=== PATIENT | female | born 1945 | race Two or more races ===

== ENCOUNTER → 2017-01-30 | Outpatient (CLI) | payer MEDICARE, BC ==
[2016-06-17 11:00] VITALS: BP 124/57
[~2017-01-30] MED LIST: ASPI-39 PO; DULO30CA2 PO; ERGO500012 PO; Hydrocodone/Acetaminophen PO; IBUP-1060 PO; IOHEXOL 300 MG/ML 100ML VIAL. IV ONE; METH500T7 PO; METO25TA4 PO; Metoprolol Tartrate PO; OMEP20CA9 PO; POLY255P PO; PRED20TA PO; Tizanidine Hcl PO
--- NOTE | 2017-01-30 11:45 | KCIC ---
INDICATION: COMPARISON: None. TECHNIQUE: Spectral doppler and grayscale ultrasound images obtained of the carotid vasculature. FINDINGS: There is [mild intimal thickening and minimal] atheromatous plaquing [within both carotid bulbs and proximal internal carotid arteries]. Doppler interrogation reveals normal waveforms and the peak systolic velocities are as follows: Right: ICA: 71.0 CCA: 113.0 ICA/CCA Ratio: 0.67 Left: ICA: 73.0 CCA: 103.0 ICA/CCA Ratio: 0.71 Vertebral arteries antegrade. subclavain waveforms seen. Note is made of mildly enlarged right neck lymph nodes, the largest lymph node measures up to 1.7 centimeter in maximum dimension. IMPRESSION: No hemodynamically significant stenoses of the internal carotid arteries bilaterally. These values were derived from data published in the J Vasc Surg 1995; 21:98, and use velocity parameters that angiographically correlate the residual internal carotid artery lumen with the distal internal carotid artery lumen (NASCET method). < 40% 40-59% 60-79% > 80% PSV ICA < 130 130-260 260-400 > 400 EDV ICA < 50 50-70 70-140 > 140 ICA/CCA < 2.0 2.0-3. 5 3.6-5.0 > 5.0 Electronically signed by: Piedad Bustamante MD (Jan 30, 2017 11:43:40)
--- NOTE | 2017-01-30 12:41 | KCIC ---
CT head with without contrast Indication: Vision loss in the right eye and elevated blood pressure. Pre and post intravenous contrast axial imaging of the brain was performed. PQRS STATEMENT One or more of the following individualized dose reduction techniques were utilized for this study: 1.Automated exposure control. 2.Adjustment of the mA and/orkVaccording to patient size. 3.Use of iterative reconstruction technique. No other who studies are available for comparison. The ventricles and sulci are within normal limits. No sulcal effacement, midline shift or hemorrhage is detected. The cisterns are patent. No abnormal enhancement following contrast administration is identified. The orbits are unremarkable. The visualized paranasal sinuses are clear. Impression: Unremarkable pre and post-contrast CT of the brain. Electronically signed by: Medardo Delgado MD (Jan 30, 2017 12:40:00)
== END | disposition home or self-care (01) ==
LOC: KCIC US 10:44
PROVIDERS: ATTEND Family Medicine
DX: I65.23 Occlusion and stenosis of bilateral carotid arteries (principal); H53.8 Other visual disturbances; I10 Essential (primary) hypertension
CPT/HCPCS: 70470; 82565; 93880; Q9967

== ENCOUNTER → 2017-05-06 | Outpatient (CLI) | payer MEDICARE ==
[2016-06-17 11:00] VITALS: BP 124/57
[~2017-05-06] MED LIST changes: -ERGO500012 PO; +ERGO500027 PO; +GADOBUTROL 10 MMOL/10 ML VIAL IV ONE; -IOHEXOL 300 MG/ML 100ML VIAL. IV ONE
--- NOTE | 2017-05-06 15:31 | KCIC ---
EXAM: MRI LUMBAR SPINE WITH AND WITHOUT CONTRAST. HISTORY: Low back pain, right lower extremity radiculopathy, prior lumbar surgery. TECHNIQUE: Magnetic resonance images of the lumbar spine were obtained before and after the intravenous administration of 8 mL Gadavist. COMPARISON: June 13, 2016. FINDINGS: There is a mild lumbar levoscoliosis. There is slight retrolisthesis from L2 through L4. No fractures are identified. Degenerative disc disease is moderate from L1 through L4 and mild elsewhere. The conus is at L1 and appears normal. There are no enhancing parenchymal lesions. At T11-12, there is a moderate posterior disc bulge with a moderate central protrusion. This abuts the anterior cord with mild deformity. This is unchanged. At L1-2, there is a moderate broad posterior disc bulge with a broad central and right paracentral disc protrusion superimposed on annular tear. These measure up to 7 mm anteroposteriorly. The right lateral recess is mildly narrowed with abutment of one right-sided nerve root. There is no significant neural foraminal stenosis. At L2-3, there is a moderate posterior disc-osteophyte complex. There is a small right paracentral protrusion. Both lateral recesses are mildly narrowed. Neural foraminal stenosis is mild bilaterally. Facet hypertrophy is mild on the left. Left ligamentum flavum hypertrophy abuts a few left nerve roots from posterolaterally. At L3-4, there is a moderate posterior disc bulge. Right hemilaminotomy changes are noted. Granulation tissue extends into the right neural foramen and exerts mild mass effect on the exiting right L3 nerve root. Neural foraminal stenosis is moderate to severe on the right and moderate on the left. Left lateral recess stenosis is mild to moderate. At L4-5, there is a moderate posterior disc bulge. Facet and ligamentum flavum hypertrophy is mild. Lateral recess stenosis is mild to moderate bilaterally. Neural foraminal stenosis is mild bilaterally. At L5-S1, there is a minimal posterior disc bulge. It extends into the left lateral territory where it abuts the exiting left L5 nerve root. IMPRESSION: 1. Right hemilaminotomy changes at L3-4. Granulation tissue extends into the right neural foramen where there is some mass effect on the right L3 nerve root. Right neural foraminal stenosis is moderate to severe at this level. 2. Multilevel bilateral mild to moderate lateral recess narrowing as detailed above. 3. Additional neural foraminal stenosis is generally mild as above. 4. A moderate central protrusion at T11-12 abuts the anterior cord with mild deformity. Multiple other herniations more inferiorly and mild mass effect on the anterior thecal sac. 5. Degenerative disc disease is moderate from L1 through L4 and mild elsewhere. Electronically signed by: Stanislav Ware MD (05/06/2017 3:28 PM)
== END | disposition home or self-care (01) ==
LOC: KCIC MRI 13:25
PROVIDERS: ATTEND Family Medicine
DX: M48.06 Spinal stenosis, lumbar region (principal); M51.16 Intervertebral disc disorders with radiculopathy, lumbar region; M51.24 Other intervertebral disc displacement, thoracic region
CPT/HCPCS: 72158; 82565; A9585

== ENCOUNTER → 2017-07-30 | Outpatient (CLI) | payer MEDICARE, BC ==
[2016-06-17 11:00] VITALS: BP 124/57
[~2017-07-30] MED LIST changes: -GADOBUTROL 10 MMOL/10 ML VIAL IV ONE
--- NOTE | 2017-07-30 12:40 | CARD ---
APPROVED REPORT EXAM: Two-dimensional and M-mode echocardiogram with Doppler and color Doppler. Other Information Quality : GoodHR: 74bpm Rhythm : NSR INDICATION Dyspnea Shortness of breath RISK FACTORS Hypertension Obesity 2D DIMENSIONS RVDd3.1 (2.9-3.5cm)Left Atrium(2D)3.7 (1.6-4.0cm) IVSd0.8 (0.7-1.1cm)Aortic Root(2D)2.4 (2.0-3.7cm) LVDd5.0 (3.9-5.9cm)LVOT Diameter2.2 (1.8-2.4cm) PWd0.7 (0.7-1.1cm)LVDs3.3 (2.5-4.0cm) FS (%) 34.8 %SV75.6 ml Aortic Valve AoV Peak Marco.159.0cm/sAoV VTI31.2cm AO Peak GR.10.1mmHgLVOT Peak Marco.109.5cm/s AO Mean GR.5mmHgAVA (VMAX)2.57cm2 Mitral Valve MV E Ymeartom44.7cm/sMV E Peak Gr.3mmHg MV DECEL [id number] A Epsoapks893.4cm/s MV E Mean Gr.2mmHgE/A Ratio0.9 MV A Ezezunny820us Pulmonary Valve PV Peak Bbgjzepi874.6cm/s Tricuspid Valve TR P. Eolimbsw230xp/sTR Peak Gr.24mmHg Pulmonary Vein S1 Snvlrckd58.4cm/sD2 Ukycvoux54.8cm/s PVa irnpefer16wotg LEFT VENTRICLE The left ventricle is normal size. There is normal left ventricular wall thickness. The left ventricu lar systolic function is normal and the ejection fraction is within normal range. The Ejection Fracti on is 55-60%. There is normal LV segmental wall motion. Transmitral Doppler flow pattern is Grade I-a bnormal relaxation pattern. RIGHT VENTRICLE The right ventricle is normal size. There is normal right ventricular wall thickness. The right ventr icular systolic function is normal. ATRIA The left atrium size is normal. The right atrium size is normal. The interatrial septum is intact wit h no evidence for an atrial septal defect or patent foramen ovale as noted on 2-D or Doppler imaging. AORTIC VALVE The aortic valve is mildly The aortic valve is trileaflet. Doppler and Color Flow revealed no signifi cant aortic regurgitation. There is no significant aortic valvular stenosis. MITRAL VALVE Mitral annular calcification is mild. The mitral valve leaflets are thickened. There is no evidence o f mitral valve prolapse. There is no mitral valve stenosis. Doppler and Color Flow revealed mild mitr al regurgitation. TRICUSPID VALVE Doppler and Color Flow revealed trace tricuspid regurgitation. The pulmonary artery systolic pressure is estimated at 24 mmHg. PULMONIC VALVE The pulmonic valve is not well visualized but appears to open adequately. Doppler and Color Flow reve aled no pulmonic valvular regurgitation. There is no pulmonic valvular stenosis by spectral Doppler. GREAT VESSELS The aortic root is normal in size. The ascending aorta is normal in size. The pulmonary artery is nor mal. The IVC is normal in size and collapses >50% with inspiration. PERICARDIAL EFFUSION There is no evidence of significant pericardial effusion. Critical Notification Critical Value: No <Conclusion> The left ventricle is normal size. The left ventricular systolic function is normal and the ejection fraction is within normal range. The Ejection Fraction is 55-60%. There is no significant aortic valvular stenosis. Doppler and Color Flow revealed no significant aortic regurgitation. Doppler and Color Flow revealed mild mitral regurgitation. Doppler and Color Flow revealed trace tricuspid regurgitation. The pulmonary artery systolic pressure is estimated at 24 mmHg.
== END | disposition home or self-care (01) ==
LOC: ECHO 07:39
PROVIDERS: ATTEND Internal Medicine Cardiovascular Disease
DX: I34.0 Nonrheumatic mitral (valve) insufficiency (principal); I10 Essential (primary) hypertension; R60.0 Localized edema; R06.02 Shortness of breath
CPT/HCPCS: 93306

== ENCOUNTER → 2018-10-23 | Outpatient (CLI) | payer MEDICARE, BC ==
[2016-06-17 11:00] VITALS: BP 124/57
[~2018-10-23] MED LIST changes: -POLY255P PO; +POLY255P11 PO
--- NOTE | 2018-10-23 16:23 | KCIC ---
MR of the right shoulder Indication: Right shoulder pain, acute. No known injury.. Comparison: None are available. Technique: Standard multiplanar sequences are obtained. Findings: Artifact: Moderate motion degradation. Acromioclavicular joint: Mildly degenerative, undersurface osteophytes with mass effect. Rotator cuff: * Supraspinatus-infraspinatus tendon: Complete full-thickness rupture of supraspinatus and infraspinatus tendons, with about 3 cm retraction. * Subscapularis tendon: Intact * Muscle bulk: Severe volume loss of the supraspinatus muscle, moderate to severe of the infraspinatus. * Subacromial subdeltoid bursa: Small effusion. Fluid: Small glenohumeral effusion. Glenohumeral cartilage: No advanced osteoarthritis. Labrum: Suboptimally seen due to the motion but no clear-cut detachment. Biceps tendon: Suboptimally seen Bones: No lesion or acute fracture. Soft tissue: Mild edema within the teres minor muscle.. Impression: 1. Large rotator cuff tear. Complete rupture of the supraspinatus and infraspinatus tendons with 3 cm retraction and moderate to severe muscle atrophy. 2. Acromioclavicular joint osteoarthrosis with osteophytes. Electronically signed by: Edil Bojorquez MD (10/23/2018 4:19 PM) [facility]
== END | disposition home or self-care (01) ==
LOC: KCIC MRI 12:36
PROVIDERS: ATTEND Family Medicine
DX: S46.811A Strain of other muscles, fascia and tendons at shoulder and upper arm level, right arm, initial encounter (principal); M75.101 Unspecified rotator cuff tear or rupture of right shoulder, not specified as traumatic; M19.011 Primary osteoarthritis, right shoulder; M25.711 Osteophyte, right shoulder; M62.511 Muscle wasting and atrophy, not elsewhere classified, right shoulder; M25.411 Effusion, right shoulder; R60.0 Localized edema; X58.XXXA Exposure to other specified factors, initial encounter; Y93.89 Activity, other specified; Y92.89 Other specified places as the place of occurrence of the external cause; Y99.8 Other external cause status
CPT/HCPCS: 73221

== ENCOUNTER → 2018-12-09 | Outpatient (CLI) | payer MEDICARE, BC ==
[2016-06-17 11:00] VITALS: BP 124/57
[~2018-12-09] MED LIST changes: +NAPR220C4 PO; +TRIA1CAP3 PO
--- NOTE | 2018-12-09 14:23 | EKG ---
[facility] [address] [place] [address] Test Date: 2018-12-09 Test Time: 14:20:58 Pat Name: JORJE HUGGINS Department: Room: Gender: F Business Systems Administrator: : 1945 Requested By: MARSHALL KING Order Number: [id number] Reading MD: Rolando Marr MD Measurements Intervals Wayne Rate: 71 P: 47 OR: 180 QRS: 47 QRSD: 78 T: 64 QT: 402 QTc: 437 Interpretive Statements SINUS RHYTHM Electronically Signed On 12-09-2018 16:42:21 SCALLOP CUTTER by Rolando Marr MD
[2018-12-09 14:43] LABS: BASO % 1 % (0-3); EOS # 0.3 x10^3/uL (0.0-0.7); EOS % 3 % (0-3); HEMATOCRIT 39.4 % (36.0-47.0); HEMOGLOBIN 12.8 g/dL (12.0-15.5); LYMPH # 3.2 x10^3/uL (1.0-4.8); LYMPH % 30 % (24-48); MEAN CORPUSCULAR HEMOGLOBIN 28 pg (25-35); MEAN CORPUSCULAR HGB CONC 32 g/dL (31-37); MEAN CORPUSCULAR VOLUME 86 fL (79-100); MONO # 0.8 x10^3/uL (0.0-1.1); MONO % 7 % (0-9); NEUT # 6.3 x10^3uL (1.8-7.7); NEUT % 59 % (31-73); PLATELET COUNT 279 x10^3/uL (140-400); RED BLOOD COUNT 4.61 x10^6/uL (3.50-5.40); RED CELL DISTRIBUTION WIDTH 15.2 % (11.5-14.5); WHITE BLOOD COUNT 10.6 x10^3/uL (4.0-11.0)
[2018-12-09 14:51] LABS: PROTHROMBIN TIME PATIENT 13.2 SEC (11.7-14.0)
[2018-12-09 15:03] LABS: BILIRUBIN,URINE NEGATIVE (NEG); CLARITY,URINE CLEAR; COLOR,URINE YELLOW; NITRITE,URINE NEGATIVE (NEG); PROTEIN,URINE NEGATIVE (NEG-TRACE); UROBILINOGEN,URINE 0.2 mg/dL (0.2 mg/dL)
[2018-12-09 15:40] LABS: ALBUMIN 3.9 g/dL (3.4-5.0); CALCIUM 9.6 mg/dL (8.5-10.1); CREATININE 1.1 mg/dL (0.6-1.0); GFR 48.8; POTASSIUM 3.5 mmol/L (3.5-5.1)
[2018-12-09 16:23] LABS: BACTERIA,URINE FEW /HPF (0-FEW); RBC,URINE OCC /HPF (0-2); SQUAMOUS EPITHELIAL CELL,UR FEW /LPF
--- NOTE | 2018-12-09 16:27 | RAD ---
Chest, PA and Lateral: Technique: PA and lateral views of the chest were obtained. History: Preop. Comparison: None. Findings: The heart and pulmonary vasculature appear within normal limits. The lungs are clear. The pleural margins are clear. Impression: No acute chest process is seen. Electronically signed by: Bin Espinosa MD (12/09/2018 4:22 PM) [facility]
== END | disposition home or self-care (01) ==
LOC: SURGPAT 13:40
PROVIDERS: ATTEND Orthopaedic Surgery
DX: Z01.818 Encounter for other preprocedural examination (principal)
CPT/HCPCS: 36415; 71046; 80048; 81001; 82040; 85025; 85610; 85651; 85730; 87086; 87641; 93005

== ENCOUNTER 2019-12-06 16:18 | Emergency (ER) | payer MEDICARE, BC ==
[~2019-12-06] VITALS: Ht 152.4 cm; Wt 75.0 kg
[~2019-12-06 16:18] MED LIST changes: +HYDR-3165 PO; +OMEP20CA16 PO; -OMEP20CA9 PO
[2019-12-06 16:38] VITALS: BP 202/83
[2019-12-06] MEDS ORDERED: ONDANSETRON ODT 4 MG TAB.RAPDIS. PO ONE (16:45)
[2019-12-06] MEDS ORDERED: LIDOCAINE WITH 8.4% SOD BICARB 3 ML DISP.SYRIN. INJ ONE (16:45)
[2019-12-06] MEDS ORDERED: HYDROcodone/APAP 5/325MG 1 TAB TABLET PO ONE (16:45)
[2019-12-06] MEDS ORDERED: DIPHTH,PERTUSS(ACELL),TET TOX 0.5 ML DISP.SYRIN. VAX IM ONE (16:45)
[2019-12-06] MEDS ORDERED: TETANUS AND DIPHTHERIA TOX/PF 0.5 ML DISP.SYRIN. VAX IM ONE (16:52)
--- NOTE | 2019-12-06 16:52 | PHYS DOC ---
Past Medical History Past Medical History: GERD, Hypertension, Sciatica, Other Additional Past Medical Histor: chronic back pain (ANGELES NEWSOME APRN) Past Surgical History: Appendectomy, Cholecystectomy Additional Past Surgical Histo: ROTATOR CUFF (ANGELES NEWSOME APRN) Alcohol Use: None Drug Use: None (ANGELES NEWSOME APRN) Adult General Chief Complaint Chief Complaint: MECHANICAL FALL HPI HPI Patient is a 74 year old female who presents to the ED today to be evaluated status post falling, patient reports she was walking down some steps when she fell on the last step, patient denies any loss of consciousness, she reports hitting her face on the ground. Has a laceration on the nasal bridge. Denies any neck pain. (ANGELES NEWSOME APRN) Review of Systems Review of Systems Constitutional: Denies fever or chills [] Eyes: Denies change in visual acuity, redness, or eye pain [] HENT: Reports nasal bridge laceration. Denies nasal congestion or sore throat [] Respiratory: Denies cough or shortness of breath [] Cardiovascular: No additional information not addressed in HPI [] GI: Denies abdominal pain, nausea, vomiting, bloody stools or diarrhea [] : Denies dysuria or hematuria [] Musculoskeletal: Denies back pain or joint pain [] Integument: Denies rash or skin lesions [] Neurologic: Denies headache, focal weakness or sensory changes [] All other systems were reviewed and found to be within normal limits, except as documented in this note. (ANGELES NEWSOME APRN) Current Medications Current Medications Current Medications Medications (Trade) Dose Ordered Sig/Kelvin Start Time Stop Time Status Last Admin Dose Admin Acetaminophen/ Hydrocodone Bitart (Lortab 5/325) 1 tab 1X ONCE 12/06/19 16:45 12/06/19 16:46 DC 12/06/19 16:45 1 TAB Diphtheria/ Tetanus/Acell Pertussis (Boostrix) 0.5 ml ONCE ONCE 12/06/19 16:45 12/06/19 16:53 DC 12/06/19 16:45 0.5 ML Lidocaine HCl (Buffered Lidocaine 1%) 3 ml 1X ONCE 12/06/19 16:45 12/06/19 16:53 DC 12/06/19 16:45 3 ML Ondansetron HCl (Zofran Odt) 4 mg 1X ONCE 12/06/19 16:45 12/06/19 16:46 DC 12/06/19 16:45 4 MG Tetanus/ Diphtheria Toxoids (Tenivac Syringe) 0.5 ml STK-MED ONCE 12/06/19 16:52 12/06/19 16:52 DC (JUANJOSE HENDRICKS DO) Allergies Allergies Allergies Coded Allergies Type Severity Reaction Last Updated Verified sulfamethoxazole Allergy Intermediate rash 12/06/19 Yes trimethoprim Allergy Intermediate rash 12/06/19 Yes acetaminophen Adverse Reaction Severe Nausea 12/06/19 Yes oxycodone Adverse Reaction Severe Nausea 12/06/19 Yes (JUANJOSE HENDRICKS DO) Physical Exam Physical Exam Constitutional: Well developed, well nourished, no acute distress, non-toxic appearance. [] HENT: Normocephalic, bilateral external ears normal, oropharynx moist, no oral exudates, nasal bridge with a laceration approximately 2 cm. Trace amount of blood noted in the left nasal cavity, no active bleeding. Eyes: PERRLA, EOMI, conjunctiva normal, no discharge. [] Neck: Normal range of motion, no tenderness, supple, no stridor. [] Cardiovascular:Heart rate regular rhythm, no murmur [] Lungs & Thorax: Bilateral breath sounds clear to auscultation [] Abdomen: Bowel sounds normal, soft, no tenderness, no masses, no pulsatile masses. [] Skin: Warm, dry, no erythema, no rash. [] Back: No tenderness, no CVA tenderness. [] Extremities: No tenderness, no cyanosis, no clubbing, ROM intact, no edema. [] Neurologic: Alert and oriented X 3, normal motor function, normal sensory function, no focal deficits noted. Cranial nerves II through XII intact Psychologic: Affect normal, judgement normal, mood normal. [] (ANGELES NEWSOME APRN) Current Patient Data Vital Signs Vital Signs Date Time Temp Pulse Resp B/P (MAP) Pulse Ox O2 Delivery O2 Flow Rate FiO2 12/06/19 16:45 20 12/06/19 16:38 98.3 103 202/83 (122) 98 Room Air 98.3 (JUANJOSE HENDRICKS DO) EKG EKG [] (ANGELES NEWSOME APRN) Radiology/Procedures Radiology/Procedures Laceration/Wound Repair Wound Location: Nasal bridge Wound's Depth, Shape: Horizontal Wound Length (cm): Approximately 2 cm Wound Explored: clean Irrigated w/ Saline (ccs): 20 Betadine Prep?: Y Anesthesia: 1% buffered lidocaine Volume Anesthetic (ccs): approx. 2 cc Wound Repaired With: Absorbable gut Suture Size/Type: 5.0/interrupted sutures Number of Sutures: 6 Progress : Wound was left open to air PROCEDURE: CT HEAD AND CERVICAL SPINE WO CT head without contrast: Reason for examination: Fell today with head and facial injury and neck pain. Axial images were obtained through the brain. No contrast was administered. Ventricular systems are symmetric and not dilated. No midline shift is seen. There is no evidence of intracranial hemorrhage, infarct, mass or edema. There are some minimal basal ganglia calcifications bilaterally. No abnormalities of seen at the orbits. The paranasal sinuses and mastoid air cells are clear. No acute skull abnormality is seen. IMPRESSION: No acute intracranial abnormality evident. CT cervical spine without contrast: Helical images were obtained through the cervical spine from skull base through the thoracic apices with no contrast administered. Reconstruction was performed in sagittal and coronal planes. The C1 ring is intact. The odontoid process is intact and normally centered between the lateral masses of C1. Cervical vertebral bodies show a grade 1 retrolisthesis of C5 on C6 vertebral body and facet joints bilaterally with severe degenerative disc disease and spondylosis at this disc level. Remaining vertebral bodies are normally aligned. The remaining discs are maintained. No acute fracture is seen. Posterior elements are intact. Prevertebral soft tissues are normal. IMPRESSION: Grade 1 retrolisthesis of C5 on C6 with severe degenerative disc disease at this level. No acute abnormality evident. CT maxillofacial without contrast: Helical images were obtained through the maxillofacial structures with no contrast administered. Reconstruction was performed in sagittal and coronal planes. The paranasal sinuses are clear and the ulrich of the paranasal sinuses appear to be intact. The ulrich of the orbits appear to be intact and the orbital structures show no abnormalities. There is a fracture at the right nasal bone with some contour deformity. Zygomatic arches are intact. No acute abnormality seen at the mandible or at the temporomandibular joints. IMPRESSION: Contour deformity of the right nasal bone consistent with a fracture. No other facial bone abnormality seen. Exposure: One or more of the following individualized dose reduction techniques were utilized for this examination: 1. Automated exposure control 2. Adjustment of the mA and/or kV according to patient size 3. Use of iterative reconstruction technique. Electronically signed by: Shanae Nielsen MD (12/06/2019 5:33 PM) [id number] DICTATED and SIGNED BY: SHANAE NIELSEN MD DATE: 12/06/191732 (ANGELES NEWSOME APRN) Course & Med Decision Making Course & Med Decision Making Pertinent Labs and Imaging studies reviewed. (See chart for details) This is a 74-year-old female patient presented to the ED today with nose laceration after falling down one step. No loss of consciousness. Tetanus was updated. CT of the head is negative for any acute findings. CT of the cervical spine is negative, CT of maxillofacial noted for nasal bone fracture. Patient was discharged on Augmentin, instructed to follow up with plastics. (ANGELES NEWSOME APRN) Dragon Disclaimer Dragon Disclaimer This electronic medical record was generated, in whole or in part, using a voice recognition dictation system. (ANGELES NEWSOME APRN) Departure Departure Impression: Primary Impression: Fall down steps Additional Impressions: Laceration of nose Nasal bone fracture Disposition: 01 HOME, SELF-CARE Condition: STABLE Referrals: JUANJOSE QUINN MD (PCP) Patient Instructions: Facial Laceration, Qehi-sh-Lovz, Nasal Fracture, [id number]-[id number] Additional Instructions: You were evaluated in the emergency room and noted to have nasal bone fracture. You can follow-up with a plastic surgeon of your choice or plastic surgeon. Phone number is [phone]. Your laceration on the nose was closed with dissolvable stitches, keep the area clean and dry. You can shower and wash her face. Apply Neosporin to the area twice a day. Take the prescribed antibiotics until completed. Scripts Ondansetron (ONDANSETRON ODT) 4 Mg Tab.rapdis 1 TAB PO PRN Q6-8HRS, #16 TAB Prov: ANGELES NEWSOME APRN 2/2/20 Amoxicillin/Potassium Clav (AUGMENTIN 875-125 TABLET) 1 Each Tablet 1 TAB PO BID for 10 Days, #20 TAB 0 Refills Prov: ANGELES NEWSOME APRN 2/2/20 Hydrocodone/Apap 5-325 (NORCO 5-325 TABLET) 1 Each Tablet 1 TAB PO Q6HRS, #12 TAB Prov: ANGELES NEWSOME JOSE 12/06/19 Attending Signature Attending Signature I have reviewed the PA/FILM HISTORIAN's note and plan of care. I was available for consultation as needed during the patient's visit in the emergency department. I agree with the clinical impression, plan, and disposition. (JUANJOSE HENDRICKS DO) Problem Qualifiers Primary Impression: Fall down steps Encounter type: initial encounter Qualified Codes: W10.8XXA - Fall (on) (from) other stairs and steps, initial encounter Additional Impressions: Laceration of nose Encounter type: initial encounter Qualified Codes: S01.21XA - Laceration without foreign body of nose, initial encounter Nasal bone fracture Encounter type: initial encounter Fracture type: closed Qualified Codes: S02.2XXA - Fracture of nasal bones, initial encounter for closed fracture ANGELES NEWSOME EMPLOYEE'S REPRESENTATIVE Dec 06, 2019 16:52 JUANJOSE HENDRICKS DO Dec 09, 2019 17:50
--- NOTE | 2019-12-06 17:36 | RAD ---
CT head without contrast: Reason for examination: Fell today with head and facial injury and neck pain. Axial images were obtained through the brain. No contrast was administered. Ventricular systems are symmetric and not dilated. No midline shift is seen. There is no evidence of intracranial hemorrhage, infarct, mass or edema. There are some minimal basal ganglia calcifications bilaterally. No abnormalities of seen at the orbits. The paranasal sinuses and mastoid air cells are clear. No acute skull abnormality is seen. IMPRESSION: No acute intracranial abnormality evident. CT cervical spine without contrast: Helical images were obtained through the cervical spine from skull base through the thoracic apices with no contrast administered. Reconstruction was performed in sagittal and coronal planes. The C1 ring is intact. The odontoid process is intact and normally centered between the lateral masses of C1. Cervical vertebral bodies show a grade 1 retrolisthesis of C5 on C6 vertebral body and facet joints bilaterally with severe degenerative disc disease and spondylosis at this disc level. Remaining vertebral bodies are normally aligned. The remaining discs are maintained. No acute fracture is seen. Posterior elements are intact. Prevertebral soft tissues are normal. IMPRESSION: Grade 1 retrolisthesis of C5 on C6 with severe degenerative disc disease at this level. No acute abnormality evident. CT maxillofacial without contrast: Helical images were obtained through the maxillofacial structures with no contrast administered. Reconstruction was performed in sagittal and coronal planes. The paranasal sinuses are clear and the ulrich of the paranasal sinuses appear to be intact. The ulrich of the orbits appear to be intact and the orbital structures show no abnormalities. There is a fracture at the right nasal bone with some contour deformity. Zygomatic arches are intact. No acute abnormality seen at the mandible or at the temporomandibular joints. IMPRESSION: Contour deformity of the right nasal bone consistent with a fracture. No other facial bone abnormality seen. Exposure: One or more of the following individualized dose reduction techniques were utilized for this examination: 1. Automated exposure control 2. Adjustment of the mA and/or kV according to patient size 3. Use of iterative reconstruction technique. Electronically signed by: Shanae Saavedra MD (12/06/2019 5:33 PM) [id number]
[2019-12-06] MEDS ORDERED: AMOX1TAB61 PO (17:54)
[2019-12-06] MEDS ORDERED: ONDA4TAB12 PO (17:54)
[2019-12-06] MEDS ORDERED: HYDR-3164 PO (17:54)
== END 2019-12-06 18:05 | disposition home or self-care (01) ==
LOC: ER 16:18
DX: S02.2XXA Fracture of nasal bones, initial encounter for closed fracture (principal); S01.21XA Laceration without foreign body of nose, initial encounter; K21.9 Gastro-esophageal reflux disease without esophagitis; I10 Essential (primary) hypertension; G89.29 Other chronic pain; Z90.49 Acquired absence of other specified parts of digestive tract; Z90.89 Acquired absence of other organs; Z98.890 Other specified postprocedural states; W10.8XXA Fall (on) (from) other stairs and steps, initial encounter; Y93.89 Activity, other specified; Y92.89 Other specified places as the place of occurrence of the external cause; Y99.8 Other external cause status
CPT/HCPCS: 12011; 70450; 70486; 72125; 90471; 90715; 99284; Q0162

== ENCOUNTER → 2020-04-05 | Outpatient (CLI) | payer MEDICARE, BC ==
[~2020-04-05] MED LIST changes: +AMOX1TAB61 PO; +HYDR-3164 PO; +ONDA4TAB12 PO
--- NOTE | 2020-04-05 17:25 | RAD ---
MR of the right shoulder HISTORY: Right shoulder pain. TECHNIQUE: Routine multiplanar sequences are obtained. FINDINGS: Substantial image degradation due to patient motion and due to body habitus. The acromioclavicular joint is mildly degenerative. There appears to be severe thinning or deficiency of the supraspinatus and infraspinatus tendon on the sagittal images, suggesting high-grade tear or rupture. More difficult to evaluate on the coronal images due to the motion, but there is a high riding humerus and on the T1-weighted images, apparent acromiohumeral contact, also supporting full-thickness tear. Hilton screws are identified at the humeral head compatible with prior surgical intervention. Subscapularis tendon heterogeneity compatible with tendinosis or mild partial tearing. Trace fluid within the subdeltoid bursa. Moderate rotator cuff muscle atrophy with volume loss and fatty infiltration. Trace glenohumeral joint fluid. Very suboptimal visualization of the labrum but no obvious acute detachment. Biceps tendon is not seen. No evidence of aggressive bone destruction or acute fracture. Degenerative changes at the glenohumeral joint. IMPRESSION: 1. Suboptimal exam due to body habitus and motion degradation. 2. Suspect full-thickness tear of at least the supraspinatus tendon and possibly infraspinatus tendon with retraction. Possible mild subscapularis tendon tear. 3. Nonvisualized biceps tendon. Electronically signed by: Edil Bojorquez MD (04/05/2020 5:22 PM) [id number]
== END | disposition home or self-care (01) ==
LOC: MRI 14:44
PROVIDERS: ATTEND Orthopaedic Surgery
DX: M19.011 Primary osteoarthritis, right shoulder (principal); M62.511 Muscle wasting and atrophy, not elsewhere classified, right shoulder
CPT/HCPCS: 73221